=== PATIENT | female | born 1975 | race Caucasian/White ===

== ENCOUNTER 2020-10-06 15:05 | Outpatient (REF) | payer MEDICAID, SELFPAY ==
--- NOTE | 2020-10-06 16:08 | MHC.AU.HAS ---
Hearing Aid Evaluation Date of Visit: 10/06/20 Historical Information: Description of Hearing: Mild to moderate sensorineural hearing loss from 9961-8031 Hz bilaterally. Tinnitus bilaterally. Summary: Patient was recently seen for an audiological evaluation at [facility] and diagnosed with a bilateral hearing loss. Dr. Nava recommended binaural amplification to facilitate improved communication. Discussed hearing aid options with her today. She is interested in rechargeable TRACI hearing aids. Hearing Aid Prescription: Based on the individual?s shared listening needs, communication environments, dexterity, desire for connectivity, and personal preferences, the following prescription for amplification has been made: Right ear: Registered Pharmacy Technician: Phonak Model: [place] P70-R Battery Size: Rechargeable Color: P8- Black Software Program Manager: Size 0 M Type of Dome: Open Left ear: Registered Pharmacy Technician: Phonak Model: [place] P70-R Battery Size: Rechargeable Color: P8- Black Software Program Manager: 1 M Type of Dome: Open Action Taken/Action Needed: Hearing Fitting to be scheduled when materials arrive. Aids ordered today. Primary Diagnosis: H90.3 Bilateral Sensorineural Hearing Loss Secondary Diagnosis: H93.13 Tinnitus, Bilateral Signature: Provider: Katie Skinner, CCC-A
== END 2020-10-06 15:06 | disposition home or self-care (01) ==
LOC: HO.HAP 15:05
PROVIDERS: Visit Provider Otolaryngology
DX: Z46.1 Encounter for fitting and adjustment of hearing aid (principal); H90.3 Sensorineural hearing loss, bilateral; H93.13 Tinnitus, bilateral
CPT/HCPCS: 92591

== ENCOUNTER 2020-11-07 09:26 | Outpatient (REF) | payer MEDICAID, SELFPAY | END 2020-11-07 09:27 | disposition home or self-care (01) | LOC: HO.HAP 09:26 | PROVIDERS: Visit Provider Otolaryngology | DX: Z46.1 Encounter for fitting and adjustment of hearing aid (principal); H90.3 Sensorineural hearing loss, bilateral; H93.13 Tinnitus, bilateral | CPT/HCPCS: V5011; V5020; V5160; V5261 ==